=== PATIENT | female | born 1930 | race Caucasian/White ===

== ENCOUNTER 2018-10-24 07:05 | Emergency (ER) | payer MEDICARE, MEDICAID ==
--- NOTE | 2018-10-24 07:21 | ER Report ---
History and Physical Time Seen By MD: 07:19 Hx. of Stated Complaint: PATIENT IS TRAVELING THROUGH AND BECAME SHORT OF BREATH WHEN SHE ARRIVED IN [place] HPI/ROS CHIEF COMPLAINT: Shortness of breath HISTORY OF PRESENT ILLNESS: 88-year-old female driving through town at a high elevation [place] noted when she got a higher elevation she get acutely short of breath has no history of heart failure has never had an NM she does have a little bit of hypertension and elevated cholesterol for which she takes medicines no history of COPD no history of diabetes that she follow great toe she got altitude on arrival to the altitude she began to notice or worsening shortness of breath went to a hotel last night to get some sleep trouble sleeping because of the shortness of breath came here this morning. On arrival here she was put on submental oxygen feels significantly better she was at 86% on arrival with a good waveform. Patient on supplemental has actually no complaints of any kind she is able to speak in full sentences and feeling significantly better patient has no additional complaints she's driving across country REVIEW OF SYSTEMS: Respiratory: No cough shortness of breath orthopnea no PND Cardiovascular: No chest pain, no palpitations. Gastrointestinal: No vomiting, no abdominal pain. Musculoskeletal: No back pain. Remainder of the 14 system rev: Yes Reviewed Nurses Notes: Yes Old Medical Records Reviewed: Yes Hx Substance Use Disorder: No Hx Alcohol Use: No Constitutional Vital Sign - Last 24 Hours 10/24/18 10/24/18 07:11 07:15 Temp 98.0 Pulse 80 Resp 24 B/P (MAP) 200/100 Pulse Ox 86 O2 Delivery Room Air O2 Flow Rate 2.0 Physical Exam General Appearance: The patient is alert, has no immediate need for airway protection and no current signs of toxicity. [ ] Eyes: Pupils equal and round no injection. Respiratory: Chest is non tender, lungs are clear to auscultation. Cardiac: regular rate and rhythm [ ] Gastrointestinal: Abdomen is soft and non tender, no masses, bowel sounds normal. Musculoskeletal: Neck: Neck is supple and non tender. Extremities have full range of motion and are non tender. Skin: No rashes or lesions. [ ] DIFFERENTIAL DIAGNOSIS: After history and physical exam differential diagnosis was considered for altitude hypoxia shortness of breath CHF COPD myocardial infarction pulmonary embolus Medical Decision Making Data Points Result Diagram: 10/24/1872310/24/18723 Laboratory Hematology Test 10/24/18 07:24 Red Blood Count 4.83 M/uL (4.17-5.56) Mean Corpuscular Volume 82.4 fL (80.0-96.0) Mean Corpuscular Hemoglobin 27.7 pg (26.0-33.0) Mean Corpuscular Hemoglobin Concent 33.6 g/dL (32.0-36.0) Red Cell Distribution Width 16.4 % (11.5-14.5) Mean Platelet Volume 8.3 fL (7.2-11.1) Neutrophils (%) (Auto) 65.4 % (39.4-72.5) Lymphocytes (%) (Auto) 23.8 % (17.6-49.6) Monocytes (%) (Auto) 6.3 % (4.1-12.4) Eosinophils (%) (Auto) 3.3 % (0.4-6.7) Basophils (%) (Auto) 1.2 % (0.3-1.4) Nucleated RBC Relative Count (auto) 0.0 /100WBC Neutrophils # (Auto) 3.4 K/uL (2.0-7.4) Lymphocytes # (Auto) 1.2 K/uL (1.3-3.6) Monocytes # (Auto) 0.3 K/uL (0.3-1.0) Eosinophils # (Auto) 0.2 K/uL (0.0-0.5) Basophils # (Auto) 0.1 K/uL (0.0-0.1) Nucleated RBC Absolute Count (auto) 0.00 K/uL D-Dimer Quantitative (PE/DVT) 0.48 ug/ml (0-0.50) Sodium Level 141 mmol/L (137-145) Potassium Level 3.7 mmol/L (3.5-5.0) Chloride Level 108 mmol/L (98-107) Carbon Dioxide Level 26 mmol/L (22-31) Blood Urea Nitrogen 16 mg/dl (7-18) Creatinine 1.10 mg/dl (0.52-1.04) Glomerular Filtration Rate Calc 47.1 Random Glucose 131 mg/dl (75-110) Calcium Level 9.3 mg/dl (8.4-10.2) Total Bilirubin 0.4 mg/dl (0.2-1.3) Aspartate Amino Transf (AST/SGOT) 19 U/L (0-35) Alanine Aminotransferase (ALT/SGPT) 30 U/L (0-56) Alkaline Phosphatase 56 U/L (0-126) Troponin I < 0.012 ng/ml B-Type Natriuretic Peptide 367 pg/ml (0-100) Total Protein 7.6 g/dl (6.3-8.2) Albumin 4.4 g/dl (3.5-5.0) Chemistry Test 10/24/18 07:24 White Blood Count 5.2 k/uL (4.5-11.0) Red Blood Count 4.83 M/uL (4.17-5.56) Hemoglobin 13.4 g/dL (12.0-16.0) Hematocrit 39.8 % (34.0-47.0) Mean Corpuscular Volume 82.4 fL (80.0-96.0) Mean Corpuscular Hemoglobin 27.7 pg (26.0-33.0) Mean Corpuscular Hemoglobin Concent 33.6 g/dL (32.0-36.0) Red Cell Distribution Width 16.4 % (11.5-14.5) Platelet Count 169 K/uL (150-450) Mean Platelet Volume 8.3 fL (7.2-11.1) Neutrophils (%) (Auto) 65.4 % (39.4-72.5) Lymphocytes (%) (Auto) 23.8 % (17.6-49.6) Monocytes (%) (Auto) 6.3 % (4.1-12.4) Eosinophils (%) (Auto) 3.3 % (0.4-6.7) Basophils (%) (Auto) 1.2 % (0.3-1.4) Nucleated RBC Relative Count (auto) 0.0 /100WBC Neutrophils # (Auto) 3.4 K/uL (2.0-7.4) Lymphocytes # (Auto) 1.2 K/uL (1.3-3.6) Monocytes # (Auto) 0.3 K/uL (0.3-1.0) Eosinophils # (Auto) 0.2 K/uL (0.0-0.5) Basophils # (Auto) 0.1 K/uL (0.0-0.1) Nucleated RBC Absolute Count (auto) 0.00 K/uL D-Dimer Quantitative (PE/DVT) 0.48 ug/ml (0-0.50) Glomerular Filtration Rate Calc 47.1 Calcium Level 9.3 mg/dl (8.4-10.2) Total Bilirubin 0.4 mg/dl (0.2-1.3) Aspartate Amino Transf (AST/SGOT) 19 U/L (0-35) Alanine Aminotransferase (ALT/SGPT) 30 U/L (0-56) Alkaline Phosphatase 56 U/L (0-126) Troponin I < 0.012 ng/ml B-Type Natriuretic Peptide 367 pg/ml (0-100) Total Protein 7.6 g/dl (6.3-8.2) Albumin 4.4 g/dl (3.5-5.0) Coagulation Test 10/24/18 07:24 D-Dimer Quantitative (PE/DVT) 0.48 ug/ml ED Course/Re-evaluation ED Course ED medical decision making 88 showed female comes in acutely short of breath after altitude issues and commuting from a lower altitude significantly higher altitude. Patient will be given home oxygen will stay the night in town get a good night's rest and she will travel back down x-ray did show possible early infiltrative changes her BNP is also elevated with an undiagnosed CHF I believe these concomitant components contributed to her shortness of breath will give her the oxygen for travel started on by mouth antibiotics and have her follow up with primary care for workup on the undiagnosed CHF. Submental oxygen she is well in the mid upper 90s she feels much better and will be discharged accordingly Decision to Disposition Date: October 24, 2018 Decision to Disposition Time: 08:20 Depart Departure Latest Vital Signs Vital Signs Date Time Temp Pulse Resp B/P (MAP) Pulse Ox O2 Delivery O2 Flow Rate FiO2 10/24/18 07:15 2.0 10/24/18 07:11 98.0 80 24 200/100 86 Room Air Impression: Primary Impression: High altitude breathing Additional Impressions: Congestive heart failure Pneumonia Condition: Improved Disposition: HOME OR SELF-CARE New Scripts Azithromycin (Z-PACK) 250 Mg Tablet 0 PO QDAY, #6 DOSE-PACK Prov: DAMION HIGGINS MD 10/24/18 Patient Instructions: Community Acquired Pneumonia (DC), Congestive Heart Failure Zones Problem Qualifiers DAMION HIGGINS MD October 24, 2018 07:21
[2018-10-24 07:35] LABS: PLATELET COUNT, AUTOMATED 169 K/uL (150-450)
--- NOTE | 2018-10-24 07:38 | EKG ---
FACILITY: [facility] - [place] PATIENT NAME: REBECA DOWNEY : [id number] MR: [id number] V: [id number] EXAM DATE: ORDERING PHYSICIAN: DAMION HIGGINS TECHNOLOGIST: JACKI Test Reason : SOB Blood Pressure : / mmHG Vent. Rate : 070 BPM Atrial Rate : 070 BPM P-R Int : 192 ms QRS Dur : 086 ms QT Int : 480 ms P-R-T Axes : 040 026 072 degrees QTc Int : 518 ms Normal sinus rhythm with sinus arrhythmia Prolonged QT Abnormal ECG No previous ECGs available Confirmed by PARRIS CALHOUN ([id number]) on 10/24/2018 5:44:15 PM Referred By: RONALDO Confirmed By:PARRIS CALHOUN
--- NOTE | 2018-10-24 08:07 | RADIOLOGY IMAGING REPORT ---
FACILITY: [facility] - [place] PATIENT NAME: Ita Nielson : 1930 MR: [id number] V: [id number] EXAM DATE: ORDERING PHYSICIAN: DAMION HIGGINS TECHNOLOGIST: Location: [facility] Patient: Ita Nielson : 1930 Visit/Account:[id number] Date of Sevice: 10/24/2018 2 VIEWS CHEST INDICATION: Short of breath. COMPARISON: None available FINDINGS: There are right greater than left perihilar and infrahilar interstitial opacities seen. More focal pa tchy airspace opacity suggested in the right infrahilar region which is seen on both views. No air br onchograms. No effusion or pneumothorax is seen. Heart size and mediastinal contours are normal. Scat tered atherosclerosis is seen within the aortic arch. 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 IMPRESSION: 1. Mild right greater than left perihilar and infrahilar interstitial opacities with a suspected deve loping right infrahilar airspace opacity. Differential in the acute setting would include asymmetric pulmonary edema versus developing pneumonia. Correlate clinically. Report Dictated By: Boubacar Tellez at 10/24/2018 8:02 AM Report E-Signed By: Boubacar Tellez at 10/24/2018 8:04 AM WSN:[id number]
--- NOTE | 2018-10-24 08:08 | RADIOLOGY IMAGING REPORT ---
FACILITY: [facility] PATIENT NAME: Ita Nielson : 1930 MR: [id number] V: [id number] EXAM DATE: ORDERING PHYSICIAN: DAMION HIGGINS TECHNOLOGIST: Location: [facility] - [place] Patient: Ita Nielson : 1930 Visit/Account:[id number] Date of Sevice: 10/24/2018 Examination: Abdomen single view HISTORY: Shortness of breath. FINDINGS: Single frontal view of the abdomen is submitted on 2 images. The intestinal bowel gas patte rn is normal. There are cholecystectomy clips in the right upper quadrant. Multilevel degenerative di sc disease involves the low lumbar spine. Degenerative changes are seen at the pubic symphysis. IMPRESSION: 1. Normal intestinal bowel gas pattern. Report Dictated By: Boubacar Tellez at 10/24/2018 8:04 AM Report E-Signed By: Boubacar Tellez at 10/24/2018 8:05 AM WSN:[id number]
[2018-10-24] MEDS ORDERED: AZIT-17 PO (08:22)
[2018-10-24 08:27] VITALS: BP 181/91
== END 2018-10-24 08:37 | disposition home or self-care (01) ==
LOC: ER 07:35
DX: T70.29XA Other effects of high altitude, initial encounter (principal); I50.9 Heart failure, unspecified; J18.9 Pneumonia, unspecified organism
CPT/HCPCS: 71046; 74018; 82040; 82247; 82310; 82374; 82435; 82565; 82947; 83880; 84075; 84132; 84155; 84295; 84450; 84460; 84484; 84520; 85025; 85379; 93005; 99284